=== PATIENT | female | born 1935 | race Caucasian/White ===

== ENCOUNTER 2018-02-03 11:54 | Inpatient (IN) | payer OTHER ==
[~2018-02-03] VITALS: Ht 160 cm; Wt 59.0 kg
[2018-02-03] MEDS ORDERED: NACL 0.9% 1,000 ML IV ONE (11:55)
[2018-02-03 11:56] VITALS: BP_SYST 131
[2018-02-03] MEDS ORDERED: ASPIRIN 81 MG TAB.CHEW PO ONE (12:00)
[2018-02-03] MEDS ORDERED: NITROGLYCERIN 1 INCH (GM) OINT. TP ONE (12:30)
[2018-02-03] MEDS ORDERED: CITA10TA9 PO (12:34)
[2018-02-03] MEDS ORDERED: GABA-529 PO (12:34)
[2018-02-03] MEDS ORDERED: LISI2.5T48 PO (12:34)
[2018-02-03 12:37] LABS: BASOPHILS # (AUTO) 0.1 K/uL (0.0-0.2); BASOPHILS % (AUTO) 0.9 % (0.0-2.0); EOSINOPHILS # (AUTO) 0.2 K/uL (0.0-0.4); EOSINOPHILS % (AUTO) 2.8 % (0.0-4.0); HEMATOCRIT 30.6 % (36-48); LYMPHOCYTES # (AUTO) 1.4 K/uL (1.0-5.5); LYMPHOCYTES % (AUTO) 25.5 % (20.5-51.5); MEAN CORPUSCULAR HEMOGLOBIN 26 pg (27-31); MEAN CORPUSCULAR HGB CONC 33 % (32-36); MEAN CORPUSCULAR VOLUME 78 fL (79.0-98.0); MONOCYTES # (AUTO) 0.5 K/uL (0.0-1.0); MONOCYTES % (AUTO) 8.3 % (1.7-9.3); NEUTROPHILS # (AUTO) 3.4 K/uL (1.8-7.7); NEUTROPHILS % (AUTO) 62.5 % (40.0-70.0); PLATELET COUNT (AUTO) 237 K/uL (130-430); RED CELL DISTRIBUTION WIDTH 13.6 % (9.0-15.0); WHITE BLOOD COUNT (AUTO) 5.6 K/uL (4.8-10.8)
[2018-02-03 12:39] LABS: ANION GAP 11 (5-15); CALCIUM 9.2 mg/dL (8.4-11.0); CHLORIDE 107 mmol/L (98-107); CREATININE 0.81 mg/dL (0.55-1.30); GLUCOSE 112 mg/dL (70-99); POTASSIUM 4.4 mmol/L (3.5-5.1); SODIUM SERUM 143 mmol/L (136-145); UREA NITROGEN, BLOOD 21 mg/dL (8-21)
[2018-02-03 12:48] LABS: ALANINE AMINOTRANSFERASE 24 U/L (12-78); ALBUMIN 3.9 g/dL (3.4-4.8); ASPARTATE AMINOTRANSFERASE 21 U/L (10-37); TOTAL BILIRUBIN 0.4 mg/dL (0.0-1.0)
[2018-02-03] MEDS ORDERED: MORPHINE 2 MG/ML INJ. SYRINGE IVP ONE (14:15)
[2018-02-03] MEDS ORDERED: ONDANSETRON HCL 4 MG/2 ML VIAL IVP PRN (14:30)
[2018-02-03] MEDS ORDERED: MORPHINE 2 MG/ML INJ. SYRINGE IVP PRN (14:30)
[2018-02-03] MEDS ORDERED: ACETAMINOPHEN 325 MG TABLET PO PRN (14:30)
[2018-02-03] MEDS ORDERED: NITROGLYCERIN 0.4 MG TAB.SUBL SL PRN (14:30)
[2018-02-03 15:50] VITALS: BP_SYST 152
[2018-02-03 19:00] VITALS: BP_SYST 137
[2018-02-03 20:00] VITALS: BP_SYST 137
[2018-02-03] MEDS: METOPROLOL TARTRATE 25 MG TABLET PO SCH (21:09)
[2018-02-03] MEDS: NORMAL SALINE 5 ML DISP.SYRIN IVF SCH (21:12)
[2018-02-04 00:26] VITALS: BP_SYST 109
[2018-02-04] MEDS: NORMAL SALINE 5 ML DISP.SYRIN IVF SCH (06:00)
[2018-02-04 08:00] VITALS: BP_SYST 109
[2018-02-04] MEDS ORDERED: ASPIRIN 325 MG TABLET PO SCH (09:00)
[2018-02-04] MEDS ORDERED: ENOXAPARIN SODIUM 40 MG/0.4 ML SYRINGE SUBCUT SCH (09:00)
[2018-02-04] MEDS ORDERED: NITROGLYCERIN 0.2 MG/HR PATCH.TD24 TD SCH (09:00)
[2018-02-04] MEDS: METOPROLOL TARTRATE 25 MG TABLET PO SCH (09:02)
[2018-02-04 11:29] VITALS: BP_SYST 117
[2018-02-04 13:58] VITALS: BP_SYST 109
== END 2018-02-04 14:20 | disposition home or self-care (01) | DRG 206 ==
LOC: SED 11:54 → STU 14:28
PROVIDERS: ADMIT Internal Medicine; ATTEND Internal Medicine
DX: M94.0 Chondrocostal junction syndrome [Tietze] (principal); I44.7 Left bundle-branch block, unspecified; I10 Essential (primary) hypertension; F03.90 Unspecified dementia, unspecified severity, without behavioral disturbance, psychotic disturbance, mood disturbance, and anxiety; Z95.2 Presence of prosthetic heart valve; Z79.899 Other long term (current) drug therapy
CPT/HCPCS: 36415; 71045; 80053; 82550-TC; 84484; 85025; 85379; 93005; 93306; 96361; 96374; 99285; J1650; J2270